=== PATIENT | female | born 1945 | race Hispanic/Latino ===

== ENCOUNTER 2018-05-17 12:12 | Outpatient (CLI) | payer MEDICARE ==
--- NOTE | 2018-05-17 13:49 | XRay Report ---
XRAY CHEST TWO VIEWS: 05/17/18 12:12:00 CLINICAL: Cough. COMPARISON: None FINDINGS: Normal heart and pulmonary vasculature.Mild aortic ectasia and tortuosity. The lungs are normally expanded and clear. No airspace disease or pleural effusion.Mild degenerative changes in the spine. IMPRESSION: No acute cardiopulmonary process.Atherosclerotic/hypertensive changes in the aorta.
== END 2018-05-17 12:13 | disposition home or self-care (01) ==
LOC: SPVIMAG 12:12
PROVIDERS: ATTEND Internal Medicine
DX: I70.0 Atherosclerosis of aorta (principal); M47.814 Spondylosis without myelopathy or radiculopathy, thoracic region; I77.819 Aortic ectasia, unspecified site
CPT/HCPCS: 71046